=== PATIENT | male | born 1975 | race Two or more races ===

== ENCOUNTER 2018-02-26 21:26 | Emergency (ER) | payer SELFPAY ==
[~2018-02-26] VITALS: Ht 175.3 cm; Wt 91.0 kg
[2018-02-26] MEDS ORDERED: SODIUM CHLORIDE 0.9% 1,000ML IVBOLUS ONE (22:00)
[2018-02-26] MEDS ORDERED: METF500T17 PO (22:02)
[2018-02-26] MEDS ORDERED: LISI5TAB7 PO (22:02)
[2018-02-26] MEDS ORDERED: LOVA40TA2 PO (22:02)
[2018-02-26 22:12] LABS: BASOPHILS # (AUTO) 0.05 x10^3/uL (0-0.1); BASOPHILS % (AUTO) 1 % (0-1); EOSINOPHILS # (AUTO) 0.09 x10^3/uL (0-0.4); EOSINOPHILS % (AUTO) 1 % (1-7); LYMPHOCYTES # (AUTO) 2.67 x10^3/uL (1-3.4); LYMPHOCYTES % (AUTO) 38 % (22-44); MD NO; MEAN CORPUSCULAR HEMOGLOBIN 29.6 pg (27.5-34.5); MEAN CORPUSCULAR HGB CONC 33.5 g/dL (33.2-36.2); MEAN CORPUSCULAR VOLUME 88.4 fL (81-97); MEAN PLATELET VOLUME 8.8 fL (7.4-10.4); MONOCYTES # (AUTO) 0.55 x10^3/uL (0.2-0.8); MONOCYTES % (AUTO) 8 % (2-9); NEUTROPHILS % (AUTO) 52 % (42-75); O2 FLOW 0 L/min; PH, VENOUS 7.361 pH (7.320-7.420); PLATELET COUNT 201 x10^3/uL (130-400); RED BLOOD COUNT 5.14 x10^6/uL (4.38-5.82); RED CELL DISTRIBUTION WIDTH 14.6 % (9.4-14.8)
[2018-02-26 22:22] LABS: ALBUMIN 3.8 g/dL (3.4-5.0); ANION GAP 14 mmol/L (5-15); CALCIUM 8.7 mg/dL (8.5-10.1); CHLORIDE 104 mmol/L (98-107); CREATININE 0.92 mg/dL (0.7-1.3)
[2018-02-26 22:45] LABS: ACETONE, SERUM Moderate(40mg/dL) mg/dL (Negative)
[2018-02-26 23:23] VITALS: BP 126/75
== END 2018-02-26 23:31 | disposition home or self-care (01) ==
LOC: ED 23:29
DX: E11.65 Type 2 diabetes mellitus with hyperglycemia (principal); E86.0 Dehydration
CPT/HCPCS: 80048; 82010; 82040; 82803; 82962; 85025; 96360; 99284; J7030